=== PATIENT | female | born 1935 | race Native Hawaiian/Other Pacific Islander ===

== ENCOUNTER 2016-09-14 14:07 | Outpatient (CLI) | payer OTHER ==
[~2016-09-14 14:07] MED LIST: ALPR1TAB61 PO; ANAS1TAB PO; BENICAR HCT1 TAB PO; CARB25TA29 PO; CHLORHEXIDINE GLUCONATE EX; CIPRO500 MG PO; CLON0.5T36 PO; DEXL60CA4 PO; EZET10TA13 PO; FLUTMIS6 INH; GABA100C2 PO; LEXAPRO20 MG PO; MIRAPEX0.75 MG OR; MIRAPEX1 MG PO; NEURONTIN 100M100 MG PO; NEXIUM40 M1 PO; SINEMET1 TA2 PO
[2016-09-14 15:58] LABS: PLATELET COUNT 164 K/uL (152-353)
[2016-09-14 16:41] LABS: POTASSIUM 4.3 mmol/L (3.6-5.2); SODIUM 138 mmol/L (136-145)
== END 2016-09-14 20:04 | disposition home or self-care (01) ==
LOC: LABW 14:07
PROVIDERS: Internal Medicine Hematology & Oncology
DX: M81.0 Age-related osteoporosis without current pathological fracture (principal); E55.9 Vitamin D deficiency, unspecified; Z85.3 Personal history of malignant neoplasm of breast
CPT/HCPCS: 36415; 80053; 82306; 85027; G0204-TC

== ENCOUNTER 2017-03-15 13:18 | Outpatient (CLI) | payer OTHER ==
[2017-03-15 13:36] LABS: PLATELET COUNT 178 K/uL (152-353)
[2017-03-15 13:50] LABS: POTASSIUM 4.8 mmol/L (3.6-5.2); SODIUM 139 mmol/L (136-145)
== END 2017-03-15 19:43 | disposition home or self-care (01) ==
LOC: LABW 13:18
PROVIDERS: Internal Medicine Hematology & Oncology
DX: C50.412 Malignant neoplasm of upper-outer quadrant of left female breast (principal); E55.9 Vitamin D deficiency, unspecified
CPT/HCPCS: 36415; 80053; 82306; 85027

== ENCOUNTER 2017-10-19 14:47 | Outpatient (CLI) | payer OTHER ==
[2017-10-19 15:51] LABS: PLATELET COUNT 210 K/uL (152-353)
[2017-10-19 15:58] LABS: POTASSIUM 4.1 mmol/L (3.6-5.2)
== END 2017-10-19 19:49 | disposition home or self-care (01) ==
LOC: LABW 14:47
PROVIDERS: Internal Medicine Hematology & Oncology
DX: C50.412 Malignant neoplasm of upper-outer quadrant of left female breast (principal); E55.9 Vitamin D deficiency, unspecified
CPT/HCPCS: 36415; 80053; 82306; 85027

== ENCOUNTER 2017-11-14 15:54 | Outpatient (CLI) | payer OTHER | END 2017-11-14 19:32 | disposition home or self-care (01) | LOC: MAMMO 15:54 | DX: Z12.31 Encounter for screening mammogram for malignant neoplasm of breast (principal) ==

== ENCOUNTER 2018-05-02 14:32 | Outpatient (CLI) | payer OTHER ==
[2018-05-02 15:05] LABS: POTASSIUM 4.4 mmol/L (3.6-5.2)
[2018-05-02 15:06] LABS: PLATELET COUNT 237 K/uL (152-353)
== END 2018-05-02 22:39 | disposition home or self-care (01) ==
LOC: LABW 14:32
PROVIDERS: Nurse Practitioner Family
DX: C50.412 Malignant neoplasm of upper-outer quadrant of left female breast (principal); E55.9 Vitamin D deficiency, unspecified
CPT/HCPCS: 36415; 80053; 82306; 85027

== ENCOUNTER 2018-06-26 14:29 | Outpatient (CLI) | payer OTHER | END 2018-06-26 20:08 | disposition home or self-care (01) | LOC: RAD 14:29 | DX: J40 Bronchitis, not specified as acute or chronic (principal) ==

== ENCOUNTER 2018-10-09 12:00 | Outpatient (CLI) | payer OTHER ==
[2018-10-09 12:15] LABS: PLATELET COUNT 192 K/uL (152-353)
== END 2018-10-09 23:44 | disposition home or self-care (01) ==
LOC: LAB 12:00
PROVIDERS: Internal Medicine
DX: I10 Essential (primary) hypertension (principal); E55.9 Vitamin D deficiency, unspecified; Z79.899 Other long term (current) drug therapy
CPT/HCPCS: 80053; 80061; 81000; 82306; 83036; 84439; 84443; 85027

== ENCOUNTER 2018-12-09 14:30 | Outpatient (CLI) | payer OTHER | END 2018-12-09 20:16 | disposition home or self-care (01) | LOC: MAMMO 14:30 | DX: Z12.31 Encounter for screening mammogram for malignant neoplasm of breast (principal); Z85.3 Personal history of malignant neoplasm of breast; M81.8 Other osteoporosis without current pathological fracture; E55.9 Vitamin D deficiency, unspecified; C50.412 Malignant neoplasm of upper-outer quadrant of left female breast ==

== ENCOUNTER 2018-12-10 12:46 | Outpatient (CLI) | payer OTHER ==
[2018-12-10 13:16] LABS: POTASSIUM 3.9 mmol/L (3.6-5.2)
[2018-12-10 13:34] LABS: PLATELET COUNT 193 K/uL (152-353)
== END 2018-12-10 23:18 | disposition home or self-care (01) ==
LOC: LAB 12:46
PROVIDERS: Internal Medicine Medical Oncology
DX: Z12.31 Encounter for screening mammogram for malignant neoplasm of breast (principal); M81.8 Other osteoporosis without current pathological fracture; E55.9 Vitamin D deficiency, unspecified; C50.412 Malignant neoplasm of upper-outer quadrant of left female breast
CPT/HCPCS: 80053; 82306; 85027

== ENCOUNTER 2018-12-19 14:13 | Outpatient (CLI) | payer OTHER | END 2018-12-19 19:36 | disposition home or self-care (01) | LOC: MAMMO 14:13 | DX: Z12.31 Encounter for screening mammogram for malignant neoplasm of breast (principal); M81.8 Other osteoporosis without current pathological fracture; E55.9 Vitamin D deficiency, unspecified; C50.412 Malignant neoplasm of upper-outer quadrant of left female breast ==

== ENCOUNTER 2019-06-30 15:46 | Outpatient (CLI) | payer OTHER ==
[2019-06-30 16:02] LABS: PLATELET COUNT 208 K/uL (152-353)
[2019-06-30 16:06] LABS: POTASSIUM 4.2 mmol/L (3.6-5.2)
== END 2019-06-30 19:19 | disposition home or self-care (01) ==
LOC: LAB 15:46
PROVIDERS: Internal Medicine Medical Oncology
DX: Z12.31 Encounter for screening mammogram for malignant neoplasm of breast (principal); M81.8 Other osteoporosis without current pathological fracture; E55.9 Vitamin D deficiency, unspecified; C50.412 Malignant neoplasm of upper-outer quadrant of left female breast
CPT/HCPCS: 80053; 82306; 85027

== ENCOUNTER 2021-01-11 16:25 | Outpatient (CLI) | payer OTHER | END 2021-01-11 21:59 | disposition home or self-care (01) | LOC: LAB 16:25 | PROVIDERS: ATTEND Internal Medicine | DX: N39.0 Urinary tract infection, site not specified (principal) | CPT/HCPCS: 81000; 87077; 87086; 87088; 87186 ==

== ENCOUNTER 2021-01-12 13:20 | Outpatient (CLI) | payer OTHER ==
[2021-01-12 14:02] LABS: PLATELET COUNT 307 K/uL (152-353)
[2021-01-12 14:09] LABS: POTASSIUM 3.6 mmol/L (3.6-5.2)
== END 2021-01-12 21:54 | disposition home or self-care (01) ==
LOC: LAB 13:20
PROVIDERS: ATTEND Internal Medicine
DX: L89.153 Pressure ulcer of sacral region, stage 3 (principal); G20 Parkinson's disease; I10 Essential (primary) hypertension; M19.90 Unspecified osteoarthritis, unspecified site
CPT/HCPCS: 80053; 80061; 84134; 84439; 84443; 85027; 85652